=== PATIENT | female | born 2000 | race Hispanic/Latino ===

== ENCOUNTER 2022-03-08 10:07 | Emergency (ER) | payer SELFPAY ==
[~2022-03-08] VITALS: Ht 160 cm; Wt 117.1 kg
[~2022-03-08 10:07] MED LIST: IBUPROFEN400 MG PO; NEOMYCIN-POLYMY10 ML EACH EAR; SULFAMETHOXAZO1 EAC1 PO
== END 2022-03-08 12:05 | disposition home or self-care (01) ==
LOC: ER 10:20
DX: R51.9 Headache, unspecified (principal); Z20.822 Contact with and (suspected) exposure to COVID-19
CPT/HCPCS: 70450; 83518; 87070; 99283; U0002